=== PATIENT | male | born 1945 | race African-American/Black ===

== ENCOUNTER 2017-10-14 11:53 | Day surgery (SDC) | payer MEDICARE, BC, OTHER ==
[2017-10-14] MEDS ORDERED: PROPOFOL 10 MG/ML VIAL IV ONE (11:54)
[2017-10-14] MEDS ORDERED: LIDOCAINE 2% MDV (20MG/ML) 20ML VIAL IV ONE (11:54)
--- NOTE | 2017-10-15 12:40 | Operative Note ---
DATE OF SURGERY: 10/14/2017 OPERATION: COLONOSCOPY to the cecum. INDICATION: History of adenomatous polyps. His last colonoscopy was over 3 years ago. He has had a subtle change in his bowel habits with the development of constipation as well. Colonoscopy is performed at this time for further evaluation. ANESTHESIA: Intravenous sedation was administered by the department of anesthesiology and included Diprivan titrated to effect. PROCEDURE: Following informed consent from this alert individual including a discussion of the risks and benefits of the procedure and an opportunity for the patient to ask questions, the patient was in the left lateral decubitus position. A digital rectal examination was performed. No abnormalities were noted. Following this, the Olympus [id number] video colonoscope was inserted into the rectum without resistance. The rectal mucosa had a normal appearance with normal folds and distensibility. The colonoscope was advanced up through the bowel to the level of the cecum without much difficulty. Throughout the bowel the mucosa appeared normal, the folds were normal, and the bowel was fairly well distensible. The cecum was defined by noting the appendiceal orifice and ileocecal valve. From the base of the cecum, the colonoscope was then slowly withdrawn. The colon preparation was adequate. No polyps or mucosal abnormalities were noted throughout the bowel upon withdrawal. Retroflexion in the rectum was endoscopically normal. The endoscope was straightened and removed. The patient tolerated the procedure well and was returned to the recovery area in stable condition. IMPRESSION: Unremarkable colonoscopy to the cecum. RECOMMENDATIONS: Because of the patient's prior history of adenomatous polyps, I did recommend surveillance colonoscopy in 5 years' time or sooner if problems arise. Followup will be with Dr. Hills. As always, thank you for allowing me to participate in the care of your patient. CC: AMANDA HILLS MD, FACP [facility]
== END 2017-10-14 13:46 | disposition home or self-care (01) ==
LOC: HOP 11:53
PROVIDERS: ATTEND Internal Medicine Gastroenterology
DX: Z87.19 Personal history of other diseases of the digestive system (principal); R19.4 Change in bowel habit; E11.9 Type 2 diabetes mellitus without complications; Z79.84 Long term (current) use of oral hypoglycemic drugs
CPT/HCPCS: 00812; G0105

== ENCOUNTER 2018-11-01 00:39 | Inpatient (IN) | payer MEDICARE, BC, OTHER ==
--- NOTE | 2018-11-01 00:52 | Emergency Department Record ---
History of Present Illness - General Chief Complaint: Cough Stated Complaint: FALL/PNEUMONIA Time Seen by Provider: 11/01/18 00:45 Source: Patient, EMS Mode of Arrival: EMS Limitations: No limitations - History of Present Illness Initial Comments: 73 yo male presents to ED for evaluation of increased weakness, cough, and low- grade fever symptoms. Patient denies chest discomfort, abdominal pain, dysuria , or change in stools. Patient reports history of pneumonia with similar symptoms. EMS was contacted as the patient rolled out of bed this evening, was unable to get back up from laying on the floor, patient denies injury to the head or neck, denies focal weakness on examination. MD Complaint: Other Onset/Timin -: Days(s) Severity: Moderate Consistency: Constant Improves With: Nothing Worsens With: Activity Associated Symptoms: Cough, Fever Treatments Prior to Arrival: None - Related Data Home Medications Medication Instructions Recorded Confirmed Last Taken Tramadol HCl 50 mg PO Q8H PRN 11/01/18 11/01/18 Unknown Allergies Allergy/AdvReac Type Severity Reaction Status Date / Time Allergies: Allergy Unknown Uncoded 12/14/13 10:03 Latex Allergy: Allergy Unknown Uncoded 12/14/13 10:03 Review of Systems Constitutional: Reports: Fever, Malaise, Weakness. Denies: Chills Eyes: Denies: Eye discharge, Eye pain ENT: Denies: Congestion, Ear pain, Epistaxis Respiratory: Reports: Cough, Dyspnea Cardiovascular: Reports: Edema (At his baseline) Endocrine: Denies: Fatigue, Heat or cold intolerance Gastrointestinal: Denies: Abdominal pain, Nausea, Vomiting Genitourinary: Denies: Incontinence, Retention Musculoskeletal: Denies: Arthralgia, Back pain Skin: Denies: Bruising, Change in color Neurological: Denies: Abnormal gait, Confusion, Numbness, Seizure Psychiatric: Denies: Anxiety Hematological/Lymphatic: Denies: Anemia, Blood Clots Past Medical History - SOCIAL HISTORY Smoking Status: Never smoker - RESPIRATORY Hx of CPAP: Yes - CARDIOVASCULAR Hx Cardio Disorders: Yes Hx Hypertension: Yes Comment:: hypercholesteremia - NEURO Hx Neuro Disorders: No - GI Hx GI Disorders: Yes Hx of Polyps: Yes - Hx Genitourinary Disorders: No - ENDOCRINE Hx Endocrine Disorders: Yes Hx Diabetes: Yes - MUSCULOSKELETAL Hx Musculoskeletal Disorders: Yes Hx Arthritis: Yes (hip and knees) - PSYCH Hx Psych Problems: No - HEMATOLOGY/ONCOLOGY Hx Hematology/Oncology Disorders: No Physical Exam - General General Appearance: Alert, Oriented x3, Cooperative, Moderate distress Limitations: No limitations - Head Head exam: Atraumatic, Normocephalic, Normal inspection Head exam detail: negative: Abrasion, Contusion, Rabago's sign, General tenderness, Hematoma, Laceration - Eye Eye exam: Normal appearance. negative: Conjunctival injection, Periorbital swelling, Periorbital tenderness, Scleral icterus - ENT Ear exam: negative: Auricular hematoma, Auricular trauma Nasal Exam: negative: Active bleeding, Discharge, Dried blood, Foreign body Mouth exam: negative: Drooling, Laceration, Muffled voice, Tongue elevation - Neck Neck exam: Normal inspection. negative: Meningismus, Tenderness - Respiratory Respiratory exam: Decreased breath sounds. negative: Rales, Respiratory distress, Rhonchi, Stridor - Cardiovascular Cardiovascular Exam: Normal rhythm, Normal heart sounds, Tachycardia - GI/Abdominal GI/Abdominal exam: Soft. negative: Rebound, Rigid, Tenderness - Rectal Rectal exam: Deferred - exam: Deferred - Extremities Extremities exam: Pedal edema. negative: Joint swelling, Tenderness - Back Back exam: Denies: CVA tenderness (R), CVA tenderness (L) - Neurological Neurological exam: Alert, Oriented X3. negative: Motor sensory deficit - Psychiatric Psychiatric exam: Normal affect, Normal mood - Skin Skin exam: Normal color. negative: Abrasion Type of lesion: negative: abrasion Course - Reevaluation(s) Reevaluation #1: 11/01/18 01:01 EKG: Sinus tachycardia 118 Normal axis, normal intervals No acute ST-T wave changes Reevaluation #2: 11/01/18 01:30 Initial laboratory studies were reviewed and are grossly unremarkable except for the following: Hgb 12 CO2 19 AG 18 LA 4.9 GFR 42 (normally >60) Influenza A positive Troponin 0.055 2nd Liter ordered to following initial 1st Liter, will redraw LA at that time. Reevaluation #3: 11/01/18 01:41 CXR: L>R mehnaz-hilar processes Zithromax and Rocephin ordered to infuse, will repeat Lactic Acid following 2nd liter to ensure patient's status is improving. Reevaluation #4: 11/01/18 03:29 Repeat Lactic Acid 2.1. Will admit for further evaluation and treatment, trend patient's troponin. Patient is in agreement with the plan of care at this time. Reevaluation #5: 11/01/18 06:55 Case was discussed with Xiomy Shukla NP, will accept admission at this time. Medical Decision Making - Lab Data Result diagrams: 11/01/18 01:05 11/01/18 01:05 Critical Care Time Critical Care Time: Yes Total Critical Care Time: 60 Critical Care Time: Diagnosis and treatment of sepsis, diagnosis and treatment of JENNIFER, treatment of lactic acidosis, initiation of IVF resuscitation and early antibiotics. Disposition Disposition: Admit Clinical Impression: JENNIFER (acute kidney injury), Influenza A, Elevated troponin CAP (community acquired pneumonia) Qualifiers: Laterality: unspecified laterality Qualified Code(s): J18.9 - Pneumonia, unspecified organism Disposition: Still a Patient at [facility] Decision to Admit: Admit from ER Decision to Admit Date: 11/01/18 Decision to Admit Time: 03:30 Condition: (2) Stable Time of Disposition: 03:30 Quality - Quality Measures Quality Measures: N/A - Blood Pressure Screening Does Patient Have Any of the Following: Active Dx of HTN Blood Pressure Classification: Normal BP Reading Systolic Measurement: 115 Diastolic Measurement: 60 Screening for High Blood Pressure: Patient Exclusion, Hx of HTN [[id number]]
[2018-11-01] MEDS ORDERED: ACETAMINOPHEN 500 MG TABLET PO ONE (01:01)
[2018-11-01] MEDS: 0.9 % SODIUM CHLORIDE 1000ML 1,000 ML IV SCH ×2 (01:06→02:01)
[2018-11-01 01:12] LABS: HEMATOCRIT 38.4 % (42.0-52.0); MEAN CELL VOLUME 84.6 fl (81-97); MEAN CORPUSCULAR HEMOGLOBIN 26.4 pg (27-33); MEAN CORPUSCULAR HGB CONC 31.3 g/dl (32-36); MEAN PLATELET VOLUME 10.3 fl (7.4-10.4); PLATELET COUNT 227 K/uL (130-400); RED BLOOD COUNT 4.54 M/uL (4.40-5.70); RED CELL DISTRIBUTION WIDTH 16.6 % (11.5-14.5); WHITE BLOOD COUNT W/O DIFF 10.2 K/uL (4.2-12.2)
[2018-11-01 01:25] LABS: BILIRUBIN,TOTAL 0.3 mg/dL (0.2-1.0); CREATININE 1.7 mg/dL (0.7-1.2); LACTIC ACID 4.9 mmol/L (0.5-2.2); TOTAL PROTEIN 6.6 g/dL (6.6-8.7)
[2018-11-01 01:26] LABS: INFLUENZA A POSITIVE (NEGATIVE); INFLUENZA B NEGATIVE (NEGATIVE)
[2018-11-01 01:31] LABS: ALB/GLOB RATIO 1.5 (1.1-1.8)
[2018-11-01 01:32] LABS: NTpro B-NATRIURETIC PEPTIDE 125.3 pg/mL (<125)
[2018-11-01 01:33] LABS: ANISOCYTOSIS 1+; PLATELET ESTIMATE NORMAL (NORMAL)
[2018-11-01] MEDS ORDERED: CEFTRIAXONE 1GM/50ML BAG 1 GM/50 ML BAG IVPB ONE (01:44)
[2018-11-01] MEDS ORDERED: AZITHROMYCIN 500 MG in 0.9 % SODIUM CHLORIDE 250ML 250 ML IVPB ONE (01:44)
[2018-11-01] MEDS ORDERED: 0.9 % SODIUM CHLORIDE 1000ML 1,000 ML IV SCH (01:45)
[2018-11-01 03:57] LABS: URINE APPEARANCE CLEAR; URINE BILIRUBIN NEGATIVE (NEGATIVE); URINE BLOOD LARGE (NEGATIVE); URINE COLOR YELLOW; URINE GLUCOSE (UA) NEGATIVE (NEGATIVE); URINE KETONE TRACE (NEGATIVE); URINE LEUKOCYTE ESTERASE NEGATIVE (NEGATIVE); URINE NITRITE NEGATIVE (NEGATIVE); URINE UROBILINOGEN 0.2 E.U./dL (0.20 - 1.00)
[2018-11-01] MEDS ORDERED: CEFTRIAXONE 1GM/50ML BAG 1 GM/50 ML BAG IVPB SCH (04:05)
[2018-11-01] MEDS ORDERED: AZITHROMYCIN 500 MG in 0.9 % SODIUM CHLORIDE 250ML 250 ML IVPB SCH (04:05)
[2018-11-01] MEDS ORDERED: TRAMADOL HCL 50 MG TABLET PO PRN (04:05)
[2018-11-01 04:18] LABS: URINE EPITHELIAL CELLS 0 - 2 (FEW); URINE RBC NONE SEEN (NONE SEEN); URINE WBC NONE SEEN (0-2/hpf)
[2018-11-01] MEDS: 0.9 % SODIUM CHLORIDE 1000ML 1,000 ML IV PRN ×3 (05:06→21:44)
[2018-11-01] MEDS ORDERED: METFORMIN 500 MG TABLET PO SCH (08:00)
[2018-11-01] MEDS ORDERED: HYDRALAZINE 20MG/ML VIAL IV PRN (08:24)
[2018-11-01] MEDS: OSTELTAMIVIR 75 MG CAP PO SCH ×2 (09:45→21:39)
[2018-11-01] MEDS ORDERED: HYDROCHLOROTHIAZIDE 25 MG TABLET PO SCH (10:00)
[2018-11-01] MEDS ORDERED: CAPTOPRIL 12.5 MG TABLET PO SCH (10:00)
[2018-11-01] MEDS: ACETAMINOPHEN 500 MG TABLET PO PRN ×2 (10:05→17:54)
[2018-11-01] MEDS: GLIPIZIDE 5 MG TABLET PO SCH (11:52)
[2018-11-01] MEDS: PIOGLITAZONE HCL 15 MG TABLET PO SCH (11:52)
--- NOTE | 2018-11-01 13:12 | History & Physical ---
History of Present Illness - Date of Service Date of Service for History & Physical: 11/01/18 - History of Present Illness Admitting Diagnosis: Sepsis. JENNIFER. Elevated troponin. Influenza. Possible CAP History of Present Illness: Jn Diaz is a 73 y.o. M who presented to the [facility] ED by EMS d/t increased weakness after a fall OOB. Rolled out of bed and was unable to get up with the assistance of his and grandson so called 911. Reports that he has had cough, low-grade fever x 2-3 days. Has not been drinking alot of fluids but still taking medications routinely. PMHx includes HTN, CHAPO, chronic BLE lymphedema and DM. Denies having chest discomfort, abd pain, dysuria or change in stools. ED Course Vitals: T 100.8, HR 125, BP 133/84, RR 20, SpO2 92% on RA EKG: Sinus tachycardia Labs: Hgb 12, Lactic Acid 4.9, GFR 42 (normally >60), Trop 0.055 Influenza A + CXR: L>R mehnaz-hilar processes Was given 2L IVF in ED which improved Lactic Acid from 4.9 to 2.1 11/01/18 1245 Vitals: T 102.1, HR 103, BP 132/60, RR 17, SpO2 99% on RA Sitting up on edge of bed, alert and appropriate. States that he feels slightly better than last night. Biggest issue is cough and sore throat. States that cough is making it very difficult for him to get rest. Denies having any pain other than a chronic right elbow discomfort. Denies chest pain/discomfort, palpitations or change in LE swelling (has lymphedema). Reports that he hasn't had a BM in 3 days and he usually goes daily. Travel Screening - Travel/Exposure Within Last 30 Days Have you traveled within the last 30 days?: No - Travel/Exposure Within Last Year Have you traveled outside the [place] in the last year?: No - Additonal Travel Details Have you been exposed to anyone with a communicable illness?: No - Travel Symptoms Symptom Screening: Fever (Subjective), Weakness Review of Systems Reviewed: No additional complaints except as noted below Constitutional: Reports: Fever, Malaise, Weakness. Denies: Chills Eyes: Denies: Eye discharge, Eye pain ENT: Denies: Congestion, Ear pain, Epistaxis Respiratory: Reports: Cough, Dyspnea Cardiovascular: Reports: Edema (chronic d/t lymphedema) Endocrine: Denies: Fatigue, Heat or cold intolerance Gastrointestinal: Reports: Constipation (no BM x 3 days). Denies: Abdominal pain, Nausea, Vomiting Genitourinary: Denies: Incontinence, Retention Musculoskeletal: Denies: Arthralgia, Back pain Skin: Denies: Bruising, Change in color Neurological: Denies: Abnormal gait, Confusion, Numbness, Seizure Psychiatric: Denies: Anxiety Hematological/Lymphatic: Denies: Anemia, Blood Clots Past Medical History - SOCIAL HISTORY Smoking Status: Never smoker - RESPIRATORY Hx of CPAP: Yes - CARDIOVASCULAR Hx Cardio Disorders: Yes Hx Hypertension: Yes Comment:: hypercholesteremia - NEURO Hx Neuro Disorders: No - GI Hx GI Disorders: Yes Hx of Polyps: Yes - Hx Genitourinary Disorders: No - ENDOCRINE Hx Endocrine Disorders: Yes Hx Diabetes: Yes - MUSCULOSKELETAL Hx Musculoskeletal Disorders: Yes Hx Arthritis: Yes (hip and knees) - PSYCH Hx Psych Problems: No - HEMATOLOGY/ONCOLOGY Hx Hematology/Oncology Disorders: No Family Medical History Any Significant Family History?: Yes Hx Diabetes: Mother H&P Meds/Allergies - Allergies Allergies: Allergies Allergy/AdvReac Type Severity Reaction Status Date / Time Allergies: Allergy Unknown Uncoded 12/14/13 10:03 Latex Allergy: Allergy Unknown Uncoded 12/14/13 10:03 - Home Medications Home Medications Medication Instructions Recorded Confirmed Last Taken Tramadol HCl 50 mg PO Q8H PRN 11/01/18 11/01/18 Unknown - Active Medications Active Medications: Current Medications Acetaminophen (Tylenol 500mg Tab) 1,000 mg PO Q6H PRN PRN Reason: PAIN - MILD TO MODERATE (1-7) Last Admin: 11/01/18 10:05 Dose: 1,000 mg Captopril (Capoten) 50 mg PO DAILY BONNIE Glipizide (Glucotrol) 10 mg PO DAILYAC [facility] Last Admin: 11/01/18 11:52 Dose: Not Given Hydralazine HCl (Apresoline) 10 mg IV TID PRN PRN Reason: HYPERTENSIVE EMERGENCY Hydrochlorothiazide (Hctz 25mg) 25 mg PO DAILY BONNIE Sodium Chloride () 1,000 mls @ 125 mls/hr IV .Q8H PRN PRN Reason: LARGE VOLUME IV Last Admin: 11/01/18 05:06 Dose: 125 mls/hr CEFTRIAXONE 1GM/50ML BAG (Ceftriaxone 1 Gm-D5w Bag) 1 gm in 50 mls @ 100 mls/ hr IVPB Q24H [facility] Azithromycin 500 mg/ Sodium (Chloride) 250 mls @ 250 mls/hr IVPB Q24H [facility] Stop: 11/07/18 03:01 Latanoprost (Xalatan) 1 drop OPTH QHS [facility] Metformin HCl (Glucophage Ir) 500 mg PO DAILYWM [facility] Last Admin: 11/01/18 08:14 Dose: Not Given Oseltamivir Phosphate (Tamiflu) 75 mg PO BID [facility] Last Admin: 11/01/18 09:45 Dose: 75 mg Pioglitazone HCl (Actos) 45 mg PO DAILY [facility] Last Admin: 11/01/18 11:52 Dose: Not Given Tramadol HCl (Ultram) 50 mg PO Q8H PRN PRN Reason: PAIN - MILD (1-4) Last Admin: 11/01/18 05:05 Dose: 50 mg Physical Exam - Vital Signs Vital Signs: Vital Signs - Last 24 Hrs Temp Pulse Pulse Resp BP BP Pulse Ox 11/01/18 10:00 102.1 F H 103 H 17 132/60 99 11/01/18 09:00 20 11/01/18 06:00 99.7 F H 95 H 16 135/74 100 11/01/18 05:20 105 H 100 11/01/18 04:05 98.3 F 110 H 22 133/86 99 11/01/18 04:04 106 H 22 115/60 97 11/01/18 03:10 99.3 F 107 H 22 127/67 97 11/01/18 02:13 111 H 20 123/57 97 11/01/18 00:45 100.8 F H 125 H 20 133/84 92 L - General General Appearance: Alert, Oriented x3, Cooperative, No acute distress Limitations: No limitations - Head Head exam: Atraumatic, Normocephalic, Normal inspection Head exam detail: negative: Abrasion, Contusion, Rabago's sign, General tenderness, Hematoma, Laceration - Eye Eye exam: Normal appearance. negative: Conjunctival injection, Periorbital swelling, Periorbital tenderness, Scleral icterus - ENT Ear exam: negative: Auricular hematoma, Auricular trauma Nasal Exam: negative: Active bleeding, Discharge, Dried blood, Foreign body Mouth exam: negative: Drooling, Laceration, Muffled voice, Tongue elevation - Neck Neck exam: Normal inspection. negative: Meningismus, Tenderness - Respiratory Respiratory exam: Decreased breath sounds, Wheezes. negative: Rales, Respiratory distress, Rhonchi, Stridor - Cardiovascular Cardiovascular Exam: Normal rhythm, Normal heart sounds, Tachycardia - GI/Abdominal GI/Abdominal exam: Soft, Normal bowel sounds. negative: Rebound, Rigid, Tenderness - Rectal Rectal exam: Deferred - exam: Deferred - Extremities Extremities exam: Pedal edema (chronic d/t lymphedema). negative: Joint swelling, Tenderness - Back Back exam: Denies: CVA tenderness (R), CVA tenderness (L) - Neurological Neurological exam: Alert, Oriented X3. negative: Motor sensory deficit - Psychiatric Psychiatric exam: Normal affect, Normal mood - Skin Skin exam: Normal color. negative: Abrasion Type of lesion: negative: abrasion Results - Labs Result Diagrams: 11/01/18 01:05 11/01/18 01:05 Labs Last 24 Hours: Laboratory Results - last 24 hr 11/01/18 11/01/18 11/01/18 00:55 01:05 01:05 WBC 10.2 RBC 4.54 Hgb 12.0 L Hct 38.4 L MCV 84.6 MCH 26.4 L MCHC 31.3 L RDW 16.6 H Plt Count 227 MPV 10.3 Neutrophils % 83.0 H Band Neutrophils % 2.0 Eosinophils % Not Reportable Basophils % Not Reportable Lymphocytes 3.0 L Monocytes 12.0 H Platelet Estimate Normal Anisocytosis 1+ Sodium 138 Potassium 4.3 Chloride 101 Carbon Dioxide 19.0 L Anion Gap 18.0 H BUN 21 Creatinine 1.7 H Estimated GFR 42 POC Glucose Random Glucose 252 H Lactic Acid 4.9 H Calcium 9.3 Total Bilirubin 0.30 AST 25 ALT 10 Alkaline Phosphatase 65 Troponin T 0.055 H NT-Pro-B Natriuret Pep 125.30 H Total Protein 6.6 Albumin 4.0 Globulin 2.6 Albumin/Globulin Ratio 1.5 Urine Color Urine Appearance Urine pH Ur Specific [place] Urine Protein Urine Glucose (UA) Urine Ketones Urine Blood Urine Nitrite Urine Bilirubin Urine Urobilinogen Ur Leukocyte Esterase Urine RBC Urine WBC Ur Epithelial Cells Influenza Type A Ag Positive H Influenza Type B Ag Negative 11/01/18 11/01/18 11/01/18 02:50 08:13 09:12 WBC RBC Hgb Hct MCV MCH MCHC RDW Plt Count MPV Neutrophils % Band Neutrophils % Eosinophils % Basophils % Lymphocytes Monocytes Platelet Estimate Anisocytosis Sodium Potassium Chloride Carbon Dioxide Anion Gap BUN Creatinine Estimated GFR POC Glucose 83 Random Glucose Lactic Acid 2.1 Calcium Total Bilirubin AST ALT Alkaline Phosphatase Troponin T 0.101 H* NT-Pro-B Natriuret Pep Total Protein Albumin Globulin Albumin/Globulin Ratio Urine Color Urine Appearance Urine pH Ur Specific [place] Urine Protein Urine Glucose (UA) Urine Ketones Urine Blood Urine Nitrite Urine Bilirubin Urine Urobilinogen Ur Leukocyte Esterase Urine RBC Urine WBC Ur Epithelial Cells Influenza Type A Ag Influenza Type B Ag 11/01/18 Unknown WBC RBC Hgb Hct MCV MCH MCHC RDW Plt Count MPV Neutrophils % Band Neutrophils % Eosinophils % Basophils % Lymphocytes Monocytes Platelet Estimate Anisocytosis Sodium Potassium Chloride Carbon Dioxide Anion Gap BUN Creatinine Estimated GFR POC Glucose Random Glucose Lactic Acid Calcium Total Bilirubin AST ALT Alkaline Phosphatase Troponin T NT-Pro-B Natriuret Pep Total Protein Albumin Globulin Albumin/Globulin Ratio Urine Color Yellow Urine Appearance Clear Urine pH 5.5 Ur Specific [place] 1.020 Urine Protein 30 mg/dl H Urine Glucose (UA) Negative Urine Ketones Trace H Urine Blood Large H Urine Nitrite Negative Urine Bilirubin Negative Urine Urobilinogen 0.2 Ur Leukocyte Esterase Negative Urine RBC None seen Urine WBC None seen Ur Epithelial Cells 0 - 2 Influenza Type A Ag Influenza Type B Ag VTE H&P Assessment - Risk for VTE Risk for VTE: Yes Risk Level: High Risk Assessment Date: 11/01/18 Risk Assessment Time: 18:00 VTE Orders Placed or Will Be Placed: Yes Plan - Inpatient Certification Inpatient Certification: Admit to inpatient care: Based on my medical assessment, after consideration of patient's risk factors (age, co-morbidities and patient presenting symptoms and acuity), I expect that this patient will remain in the hospital greater than or equal to two midnights and that the services needed warrant inpatient care because: Patient Risk Factors: [age, co-morbidities] Estimated length of stay: [2] The patient may reasonably be expected to be discharged or transferred to a hospital within 96 hours after admission to [facility]. Services needed: [IV therapy, cardiac monitoring] Post hospital care (if known): [home] I certify that my determination is in accordance with my understanding of Medicare requirements for reasonable and necessary inpatient services. 11/01/18 19:13 - Detailed Diagnosis and Plan (1) Influenza A Current Visit: Yes Status: Acute Base Code: J10.1 - FLU DUE TO OTH IDENT INFLUENZA VIRUS W OTH RESP MANIFEST Comment: 11/01/18 -Influenza A + -Tamiflu 75mg BID -Tylenol 1000mg q. 6 hours PRN for fever (2) CAP (community acquired pneumonia) Current Visit: Yes Status: Acute Qualifiers: Laterality: unspecified laterality Qualified Code(s): J18.9 - Pneumonia, unspecified organism Base Code: J18.9 - PNEUMONIA, UNSPECIFIED ORGANISM Comment: 11/01/18 -CXR: L>R perihilar processes -Continue IV Rocephin and Zithromax -Lactic Acid 4.9, decreased to 2.1 following 2L IVF -Continue IVF at 125ml/hr -Tessalon perles ordered for cough (3) JENNIFER (acute kidney injury) Current Visit: Yes Status: Acute Base Code: N17.9 - ACUTE KIDNEY FAILURE, UNSPECIFIED Comment: 11/01/18 -GFR 42, normally >60 -Likely r/t dehydration -Hold nephrotoxic home meds (Captopril, Hctz, Metformin) -Continue IVF at 125ml/hr -CMP to be drawn tomorrow (4) Elevated troponin Current Visit: Yes Status: Acute Base Code: R74.8 - ABNORMAL LEVELS OF OTHER SERUM ENZYMES Comment: 11/01/18 -Troponin 0.055, 0.101, 0.062 -No reports of chest pain, palpitations, SOB. EKG: Sinus Tachycardia, no acute ST changes -Troponin ordered for tomorrow at 0600 -Likely non-cardiac cause (5) DVT prophylaxis Current Visit: Yes Status: Acute Base Code: [id number] - Comment: 11/01/18 -High risk d/t age, weight, comorbidities, decreased mobility d/t weakness -Lovenox 40mg Subq daily (6) Full code status Current Visit: Yes Status: Acute Base Code: Z78.9 - OTHER SPECIFIED HEALTH STATUS Comment: 11/01/18 -Full code status
[2018-11-01] MEDS ORDERED: POLYETHYLENE GLY 17 GM PACKET PO PRN (13:13)
[2018-11-01] MEDS: BENZONATATE 100 MG CAPSULE PO PRN (15:24)
[2018-11-01] MEDS ORDERED: IBUPROFEN 400 MG TABLET PO ONE (18:58)
[2018-11-01] MEDS ORDERED: NAPROXEN 250 MG TABLET PO ONE (19:03)
[2018-11-01] MEDS ORDERED: NAPROXEN 250 MG TABLET PO SCH (20:30)
[2018-11-01] MEDS: ENOXAPARIN 40 MG/0.4 ML SYR SQ SCH (20:31)
[2018-11-01] MEDS ORDERED: LATANOPROST 0.005% OPTH SOLUTION 2.5ML BOTTLE OPTH SCH (22:00)
[2018-11-02] MEDS ORDERED: CEFTRIAXONE 1GM/50ML BAG 1 GM/50 ML BAG IVPB SCH (02:00)
[2018-11-02] MEDS ORDERED: AZITHROMYCIN 500 MG in 0.9 % SODIUM CHLORIDE 250ML 250 ML IVPB SCH (03:00)
[2018-11-02 06:23] LABS: BASO % 0.1 % (0-6); EOS % 0.1 % (0-6); HEMATOCRIT 36.5 % (42.0-52.0); HEMOGLOBIN 11.3 gm/dl (14.0-18.0); LYMPH % 11.7 % (16-45); MEAN CELL VOLUME 85.1 fl (81-97); MEAN CORPUSCULAR HEMOGLOBIN 26.3 pg (27-33); MEAN PLATELET VOLUME 10.2 fl (7.4-10.4); MONO % 12.1 % (0-9); PLATELET COUNT 207 K/uL (130-400); RED BLOOD COUNT 4.29 M/uL (4.40-5.70); RED CELL DISTRIBUTION WIDTH 16.8 % (11.5-14.5); WHITE BLOOD COUNT W/O DIFF 7.1 K/uL (4.2-12.2)
[2018-11-02] MEDS: BENZONATATE 100 MG CAPSULE PO PRN (06:37)
[2018-11-02 06:38] LABS: ALB/GLOB RATIO 1.4 (1.1-1.8); ALBUMIN 3.7 g/dL (4.0-5.0); ALKALINE PHOSPHATASE 54 U/L (40-129); ALT/SGPT 50 U/L (<41); AST/SGOT 355 U/L (10.0-50.0); BLOOD UREA NITROGEN 16 mg/dL (8-23); CREATININE 1.1 mg/dL (0.7-1.2); EST GLOMERULAR FILTRATION RATE > 60 mL/min; GLUCOSE,RANDOM 51 mg/dL (74-109); TOTAL PROTEIN 6.3 g/dL (6.6-8.7)
[2018-11-02] MEDS: 0.9 % SODIUM CHLORIDE 1000ML 1,000 ML IV PRN (07:34)
[2018-11-02] MEDS: GLIPIZIDE 5 MG TABLET PO SCH (08:17)
[2018-11-02] MEDS: ENOXAPARIN 40 MG/0.4 ML SYR SQ SCH (09:33)
[2018-11-02] MEDS: OSTELTAMIVIR 75 MG CAP PO SCH (09:33)
[2018-11-02] MEDS: PIOGLITAZONE HCL 15 MG TABLET PO SCH (09:34)
--- NOTE | 2018-11-02 12:24 | Discharge Summary ---
Providers Discharge Summary Date: 11/02/18 Date of admission: 11/01/18 03:55 Attending physician: SNOW VARGAS Primary care physician: Marino Hills Physical Exam - Vital Signs Vital Signs: Vital Signs - Last 24 Hrs Temp Pulse Pulse Resp BP BP Pulse Ox 11/02/18 08:00 97.5 F L 89 16 116/57 100 11/02/18 04:04 97.7 F 79 18 94/48 100 11/01/18 21:00 98 H 24 11/01/18 19:01 102.9 F H 11/01/18 18:00 102.5 F H 144 H 32 H 93 L 11/01/18 14:00 98.9 F 108 H 16 161/78 100 - General General Appearance: Alert, Oriented x3, Cooperative, No acute distress Limitations: No limitations - Head Head exam: Atraumatic, Normocephalic, Normal inspection Head exam detail: negative: Abrasion, Contusion, Rabago's sign, General tenderness, Hematoma, Laceration - Eye Eye exam: Normal appearance. negative: Conjunctival injection, Periorbital swelling, Periorbital tenderness, Scleral icterus - ENT Ear exam: negative: Auricular hematoma, Auricular trauma Nasal Exam: negative: Active bleeding, Discharge, Dried blood, Foreign body Mouth exam: negative: Drooling, Laceration, Muffled voice, Tongue elevation - Neck Neck exam: Normal inspection. negative: Meningismus, Tenderness - Respiratory Respiratory exam: Decreased breath sounds, Wheezes. negative: Rales, Respiratory distress, Rhonchi, Stridor - Cardiovascular Cardiovascular Exam: Normal rhythm, Normal heart sounds - GI/Abdominal GI/Abdominal exam: Soft, Normal bowel sounds. negative: Guarding, Organomegaly , Rebound, Rigid, Tenderness - Rectal Rectal exam: Deferred - exam: Deferred - Extremities Extremities exam: Pedal edema (chronic d/t lymphedema). negative: Joint swelling, Tenderness - Back Back exam: Denies: CVA tenderness (R), CVA tenderness (L) - Neurological Neurological exam: Alert, Oriented X3. negative: Motor sensory deficit - Psychiatric Psychiatric exam: Normal affect, Normal mood - Skin Skin exam: Normal color. negative: Abrasion Type of lesion: negative: abrasion Hospitalization - Hospitalization Admission Diagnosis: Sepsis. JENNIFER. Elevated troponin. Influenza. Possible CAP - Problem List/Discharge Diagnosis (1) Influenza A Status: Acute Base Code: J10.1 - FLU DUE TO OTH IDENT INFLUENZA VIRUS W OTH RESP MANIFEST Comment: 11/02/18 -Influenza A + -Tamiflu 75mg BID started on 10/31/18 -Stopped on 11/02/18 d/t elevated liver enzymes (2) CAP (community acquired pneumonia) Status: Acute Discharge Diagnosis: Laterality: unspecified laterality Qualified Code(s): J18.9 - Pneumonia, unspecified organism Base Code: J18.9 - PNEUMONIA, UNSPECIFIED ORGANISM Comment: 11/02/18 -Azithromycin 250mg PO q.day x 4 doses (already had 500mg dose) -Tessalon perles ordered for cough (3) JENNIFER (acute kidney injury) Status: Acute Base Code: N17.9 - ACUTE KIDNEY FAILURE, UNSPECIFIED Comment: 11/02/18 -kidney function improved to GFR >60 and creatinine 1.1 (which is baseline) -Stop IVF -Restart home meds on 11/03/18 -Discussed drinking lots of fluid (4) Elevated troponin Status: Acute Base Code: R74.8 - ABNORMAL LEVELS OF OTHER SERUM ENZYMES Comment: 11/02/18 -Troponin 0.055, 0.101, 0.062 -No reports of chest pain, palpitations, SOB -Telemetry = Normal Sinus Rhythm -Likely non-cardiac cause (5) DVT prophylaxis Status: Acute Base Code: [id number] - Comment: 11/02/18 -High risk d/t age, weight, comorbidities, decreased mobility d/t weakness -Received Lovenox during hospitalization (6) Full code status Status: Acute Base Code: Z78.9 - OTHER SPECIFIED HEALTH STATUS Comment: 11/02 -Full code status (7) Elevated liver enzymes Status: Acute Base Code: R74.8 - ABNORMAL LEVELS OF OTHER SERUM ENZYMES Comment: 11/02/18 -AST increased from 25 to 355, ALT increased from 10 to 50 overnight, alk phos WNL -Recommended that pt stay overnight for further monitoring, pt requesting to go home -Pt agreed to have labs drawn in the morning, gave slip for Hepatic panel -Instructed to f/u with PCP jenna for monitoring/workup outpatient -Instructed to avoid alcohol and acetaminophen. Stopped Tamiflu. - Hospitalization Course Disposition: Home, Self-Care Hospital Course: Jn Diaz is a 73 y.o. M who presented to the [facility] ED by EMS d/t increased weakness after a fall OOB. Rolled out of bed and was unable to get up with the assistance of his and grandson so called 911. Reports that he has had cough, low-grade fever x 2-3 days. Has not been drinking alot of fluids but still taking medications routinely. PMHx includes HTN, CHAPO, chronic BLE lymphedema and DM. Denies having chest discomfort, abd pain, dysuria or change in stools. ED Course Vitals: T 100.8, HR 125, BP 133/84, RR 20, SpO2 92% on RA EKG: Sinus tachycardia Labs: Hgb 12, Lactic Acid 4.9, GFR 42 (normally >60), Trop 0.055 Influenza A + CXR: L>R mehnaz-hilar processes Was given 2L IVF in ED which improved Lactic Acid from 4.9 to 2.1 11/01/18 1245 Vitals: T 102.1, HR 103, BP 132/60, RR 17, SpO2 99% on RA Sitting up on edge of bed, alert and appropriate. States that he feels slightly better than last night. Biggest issue is cough and sore throat. States that cough is making it very difficult for him to get rest. Denies having any pain other than a chronic right elbow discomfort. Denies chest pain/discomfort, palpitations or change in LE swelling (has lymphedema). Reports that he hasn't had a BM in 3 days and he usually goes daily. 11/02/18 1145 V Awake and alert. Reports that his fever broke last night and that he sweat alot throughout the night. Feeling well and wants to go home to be with , who is on chemo. When recommended to stay one more night to monitor symptoms and liver enzymes, pt requested to have blood drawn as an outpatient in the morning. States that he does not drink alcohol, doesn't need to take any acetaminophen and denies having any abdominal pain. Cough has improved but would like some Tessalon Perles for night time. Procedures: Imaging and X-Rays 11/01/18 01:21 CHEST 1 VIEW [RAD] Stat Cardiology Procedures 11/01/18 00:46 EKG NOW 11/01/18 04:05 [employer] .Continuous Abnormal Labs: Abnormal Lab Results 11/01/18 11/01/18 11/01/18 Range/Units 00:55 01:05 01:05 RBC (4.40-5.70) M/uL Hgb 12.0 L (14.0-18.0) gm/dl Hct 38.4 L (42.0-52.0) % MCH 26.4 L (27-33) pg MCHC 31.3 L (32-36) g/dl RDW 16.6 H (11.5-14.5) % Neutrophils % 83.0 H (47-80) % Lymphocytes % (16-45) % Monocytes % (0-9) % Lymphocytes 3.0 L (16-45) % Monocytes 12.0 H (0-9) % Chloride (98-107) mmol/L Carbon Dioxide 19.0 L (22-29) mmol/L Anion Gap 18.0 H (7-16) Creatinine 1.7 H (0.7-1.2) mg/dL POC Glucose (70-110) mg/dL Random Glucose 252 H (74-109) mg/dL Lactic Acid 4.9 H (0.5-2.2) mmol/L Calcium (8.8-10.2) mg/dL AST (10.0-50.0) U/L ALT (<41) U/L Troponin T 0.055 H (0-0.010) ng/mL NT-Pro-B Natriuret Pep 125.30 H (<125) pg/mL Total Protein (6.6-8.7) g/dL Albumin (4.0-5.0) g/dL Urine Protein (NEGATIVE) Urine Ketones (NEGATIVE) Urine Blood (NEGATIVE) Influenza Type A Ag Positive H (NEGATIVE) 11/01/18 11/01/18 11/01/18 Range/Units 09:12 17:35 Unknown RBC (4.40-5.70) M/uL Hgb (14.0-18.0) gm/dl Hct (42.0-52.0) % MCH (27-33) pg MCHC (32-36) g/dl RDW (11.5-14.5) % Neutrophils % (47-80) % Lymphocytes % (16-45) % Monocytes % (0-9) % Lymphocytes (16-45) % Monocytes (0-9) % Chloride (98-107) mmol/L Carbon Dioxide (22-29) mmol/L Anion Gap (7-16) Creatinine (0.7-1.2) mg/dL POC Glucose (70-110) mg/dL Random Glucose (74-109) mg/dL Lactic Acid (0.5-2.2) mmol/L Calcium (8.8-10.2) mg/dL AST (10.0-50.0) U/L ALT (<41) U/L Troponin T 0.101 H* 0.062 H (0-0.010) ng/mL NT-Pro-B Natriuret Pep (<125) pg/mL Total Protein (6.6-8.7) g/dL Albumin (4.0-5.0) g/dL Urine Protein 30 mg/dl H (NEGATIVE) Urine Ketones Trace H (NEGATIVE) Urine Blood Large H (NEGATIVE) Influenza Type A Ag (NEGATIVE) 11/02/18 11/02/18 11/02/18 Range/Units 06:00 06:00 06:00 RBC 4.29 L (4.40-5.70) M/uL Hgb 11.3 L (14.0-18.0) gm/dl Hct 36.5 L (42.0-52.0) % MCH 26.3 L (27-33) pg MCHC 31.0 L (32-36) g/dl RDW 16.8 H (11.5-14.5) % Neutrophils % (47-80) % Lymphocytes % 11.7 L (16-45) % Monocytes % 12.1 H (0-9) % Lymphocytes (16-45) % Monocytes (0-9) % Chloride 108 H (98-107) mmol/L Carbon Dioxide (22-29) mmol/L Anion Gap (7-16) Creatinine (0.7-1.2) mg/dL POC Glucose (70-110) mg/dL Random Glucose 51 L (74-109) mg/dL Lactic Acid (0.5-2.2) mmol/L Calcium 8.5 L (8.8-10.2) mg/dL AST 355 H (10.0-50.0) U/L ALT 50 H (<41) U/L Troponin T 0.063 H (0-0.010) ng/mL NT-Pro-B Natriuret Pep (<125) pg/mL Total Protein 6.3 L (6.6-8.7) g/dL Albumin 3.7 L (4.0-5.0) g/dL Urine Protein (NEGATIVE) Urine Ketones (NEGATIVE) Urine Blood (NEGATIVE) Influenza Type A Ag (NEGATIVE) 11/02/18 Range/Units 08:06 RBC (4.40-5.70) M/uL Hgb (14.0-18.0) gm/dl Hct (42.0-52.0) % MCH (27-33) pg MCHC (32-36) g/dl RDW (11.5-14.5) % Neutrophils % (47-80) % Lymphocytes % (16-45) % Monocytes % (0-9) % Lymphocytes (16-45) % Monocytes (0-9) % Chloride (98-107) mmol/L Carbon Dioxide (22-29) mmol/L Anion Gap (7-16) Creatinine (0.7-1.2) mg/dL POC Glucose 58 L (70-110) mg/dL Random Glucose (74-109) mg/dL Lactic Acid (0.5-2.2) mmol/L Calcium (8.8-10.2) mg/dL AST (10.0-50.0) U/L ALT (<41) U/L Troponin T (0-0.010) ng/mL NT-Pro-B Natriuret Pep (<125) pg/mL Total Protein (6.6-8.7) g/dL Albumin (4.0-5.0) g/dL Urine Protein (NEGATIVE) Urine Ketones (NEGATIVE) Urine Blood (NEGATIVE) Influenza Type A Ag (NEGATIVE) Condition at Discharge: (2) Stable Discharge Medications - Discharge Medications Prescriptions: Azithromycin 250 mg PO DAILY #4 tablet Benzonatate [Tessalon Perles] 100 mg PO TID PRN #10 capsule PRN Reason: Cough Home Medications: Ambulatory Orders Captopril [Capoten] 50 mg PO DAILY 05/15/14 [Last Taken 05/14/14] Glyburide/Metformin HCl [Glucovance 5-500 mg Tablet] 1 each PO DAILY 05/15/14 [ Last Taken 05/14/14] Hydrochlorothiazide 25 mg PO DAILY 05/15/14 [Last Taken 05/14/14] Latanoprost 0.005% Opth Jannette [Xalatan] 2.5 ml OPTH DAILY 05/15/14 [Last Taken ] Pioglitazone HCl [Actos] 45 mg PO DAILY 05/15/14 [Last Taken 05/14/14] Tramadol HCl 50 mg PO Q8H PRN 11/01/18 [Last Taken Unknown] Azithromycin 250 mg PO DAILY #4 tablet 11/02/18 [Last Taken Unknown] Benzonatate [Tessalon Perles] 100 mg PO TID PRN #10 capsule 11/02/18 [Last Taken Unknown] Discharge Plan - Discharge Instructions Activity at Discharge: Increase Activity as Tolerated Diet at Discharge: Advance to Usual Diet Instructions: Influenza (DC) Additional Instructions: Follow up with Dr. Hills within 1 week Have labs drawn tomorrow to monitor your liver function Avoid Alcohol and Acetaminophen as they can be hard on your liver Talk with Dr. Hills about adjusting your diabetes medications due to low blood glucose levels in the morning Take Azithromycin 250mg daily for 4 days Quality Measures - Quality Measures Quality Measures: Advance Directives, Documentation of Current Medications in Medical Record, Elder Maltreatment Screen and Follow-Up Plan, Screening for High Blood Pressure and F/U Documented - Current Medications Quality Measure: Measure #130: Documentation of Current Medications Documentation of Current Medications: <Current Medications Documented/Reviewed> [G1573] - Blood Pressure Screening Quality Measure: Screening for High Blood Pressure and Follow-Up Documented Does Patient Have Any of the Following: Active Dx of HTN Blood Pressure Classification: Normal BP Reading Systolic Measurement: 115 Diastolic Measurement: 60 Screening for High Blood Pressure: Patient Exclusion, Hx of HTN [G9744] - Advance Directives Quality Measure: Measure #47: Care Plan Advance Directives Established: No Advance Directives Information Provided To Patient: No Advance Directives on File: No Living Will: No Power of Information Technology Coordinator: No Advance Care Planning: <Care Plan/Decision Maker Documented; Discussed & Documented> [3087F] - Elder Abuse Suspicion Index Screening: Elder Abuse Suspicion Index Screening Rely on people for bathing, dressing, shopping, banking, etc: No Prevented from getting food, clothes, medication, etc: No Made to feel shamed or threatened by someone: No Forced to sign papers or use money against will: No Feel afraid, touched in ways not wanted or hurt physically: No Poor eye contact, withdrawn, malnourished, cuts or bruises: No Screening Result: Negative result EASI Reference Information: Ryland CASTRO, Birdie Currie, Juventino Douglass, Papo Hamilton.Development and validation of a tool to assist physicians identification of elder abuse: The Elder Abuse Suspicion Index (EASI ). Journal of Elder Abuse and Neglect, 2008; 20 (3): 276-300. - Elder Maltreatment Screen Quality Measures: Elder Maltreatment Screen and Follow-Up Plan Elder Maltreatment Screen: <Negative, No Follow-Up Plan Required> [G8762]
[2018-11-02] MEDS ORDERED: BENZONATATE 100 MG CAPSULE PO ONE (13:09)
[2018-11-02] MEDS ORDERED: AZITHROMYCIN 500 MG TABLET PO ONE (13:09)
--- NOTE | 2018-11-03 08:08 | RADIOLOGY REPORT ---
EXAM: CHEST HISTORY: PATIENT HAS COUGH AND FEVER. TECHNIQUE: A single AP portable view of the chest was provided along with the comparison study dated 09/17/10. FINDINGS: The cardiac silhouette is magnified. Linear subsegmental atelectasis is suspected in the left lung base. Questionable small left sided pleural effusion may be present. No pneumothorax is noted. IMPRESSION: LINEAR SUBSEGMENTAL ATELECTASIS AT THE LEFT LUNG BASE IS NOTED WITH QUESTIONABLE SMALL LEFT SIDED PLEURAL EFFUSION. FOLLOW-UP PA AND LATERAL VIEWS OF THE CHEST CAN BE OBTAINED UNTIL RESOLUTION OF FINDINGS. JOB NUMBER: [id number] [facility]
== END 2018-11-02 13:34 | disposition home or self-care (01) ==
LOC: ER 00:39 → MEDSURG 03:55
PROVIDERS: ADMIT Internal Medicine; ATTEND Internal Medicine
DX: A41.9 Sepsis, unspecified organism (principal); J18.9 Pneumonia, unspecified organism; N17.9 Acute kidney failure, unspecified; J09.X2 Influenza due to identified novel influenza A virus with other respiratory manifestations; R79.89 Other specified abnormal findings of blood chemistry; R74.8 Abnormal levels of other serum enzymes; R50.9 Fever, unspecified; I10 Essential (primary) hypertension; E11.9 Type 2 diabetes mellitus without complications; M17.10 Unilateral primary osteoarthritis, unspecified knee; M16.10 Unilateral primary osteoarthritis, unspecified hip; W06.XXXA Fall from bed, initial encounter; I89.0 Lymphedema, not elsewhere classified
CPT/HCPCS: 83605 ×2; 80053; 87400; 84484; 85027; 83880; 71045; 93005; 93010; J0696; 36416; 81001; 82948; 94760; 96365; 96366; 99223; 99239; 99285; 99291; J0456; J1650; J7030; J7050